=== PATIENT | male | born 1980 | race African-American/Black ===

== ENCOUNTER 2017-08-02 09:11 | Emergency (ER) | payer SELFPAY ==
[~2017-08-02] VITALS: Ht 182.9 cm; Wt 79.0 kg
[2017-08-02 09:18] VITALS: BP 144/90
== END 2017-08-02 12:59 | disposition home or self-care (01) ==
LOC: ER 09:11
DX: J06.9 Acute upper respiratory infection, unspecified (principal); J45.909 Unspecified asthma, uncomplicated
CPT/HCPCS: 71045; 87070; 87430; 87804; 99285